=== PATIENT | female | born 1945 | race Caucasian/White ===

== ENCOUNTER 2017-05-19 19:48 | Emergency (ER) | payer OTHER ==
[2017-05-19 20:36] VITALS: BP 149/79
--- NOTE | 2017-05-19 20:46 | UC ---
Hand/Wrist HPI - HPI Summary HPI Summary: Pt presents s/p fall earlier this evening. She was walking downtown and did not see a plant box in front of her - hit her left [place]adwick on the box and fell forward with hands outstretched. Did not hit her head. She sustained a laceration to left leg - went home and cleaned the area and then came to urgent care. Currently she has right wrist pain and a laceration to her left anterior lower leg. She is in moderate pain, mostly due to her wrist, and has not taken anything for this. No numbness, tingling, or decreased ROM. - History Of Current Complaint Onset/Duration: Sudden Onset Severity Initially: Moderate Severity Currently: Moderate Pain Intensity: 8 Pain Scale Used: 0-10 Numeric Character Of Pain: Aching, Throbbing, Stiffness Aggravating Factor(s): Movement <Sandor Quiroz - Last Filed: 05/20/17 18:02> <Deyanira Escobar - Last Filed: 05/21/17 06:59> - History Of Current Complaint Chief Complaint: UCUpperExtremity Stated Complaint: HAND INJURY Time Seen by Provider: 05/19/17 20:45 - Allergies/Home Medications Allergies/Adverse Reactions: Allergies Allergy/AdvReac Type Severity Reaction Status Date / Time midazolam Allergy Nausea And Verified 05/19/17 20:38 Vomiting PMH/Surg Hx/FS Hx/Imm Hx Previously Healthy: Yes Cardiovascular History: Hypertension Respiratory History: Asthma - Surgical History Surgical History: Yes Surgery Procedure, Year, and Place: APPENDECTOMY A CHILD. TONSILLECTOMY A CHILD - Family History Known Family History: Positive: None - Social History Occupation: Retired Lives: With Family Alcohol Use: None Substance Use Type: None Smoking Status (MU): Former Smoker When Did the Patient Quit Smoking/Using Tobacco: SMOKED IN COLLEGE <Sandor Quiroz - Last Filed: 05/20/17 18:02> Review of Systems Constitutional: Negative Skin: Other - Laceration left leg Respiratory: Negative Cardiovascular: Negative Neurovascular: Negative Musculoskeletal: Other: - Pain right wrist Neurological: Negative Psychological: Negative All Other Systems Reviewed And Are Negative: Yes <Sandor Quiroz - Last Filed: 05/20/17 18:02> Physical Exam Triage Information Reviewed: Yes Appearance: Well-Appearing, No Pain Distress, Well-Nourished Vital Signs: Initial Vital Signs Temp 98.3 F 05/19/17 20:33 Pulse 68 05/19/17 20:33 Resp 20 05/19/17 20:33 BP 149/79 05/19/17 20:33 Pulse Ox 97 05/19/17 20:33 Vital Signs Reviewed: Yes Neck: Positive: Supple, Other: - NTTP. FROM Respiratory: Positive: Lungs clear, Normal breath sounds, No respiratory distress Cardiovascular: Positive: RRR, No Murmur, Pulses Normal - Right radial and ulnar Musculoskeletal: Positive: Strength Intact - Right wrist and hand, ROM Intact - Right wrist, No Edema - Right wrist, Other: - Mild TTP about right wrist with no specific point tenderness Neurological: Positive: Alert, Other: - Sensations intact right hand and all fingers. Skin: Positive: Other - 3.0cm linear superficial laceration to left anterior leg along mid tibia approx 5mm in width. No subcutaneous fat exposed. No FB appreciated <Sandor Quiroz - Last Filed: 05/20/17 18:02> Vital Signs: Initial Vital Signs Temp 98.3 F 05/19/17 20:33 Pulse 68 05/19/17 20:33 Resp 20 05/19/17 20:33 BP 149/79 05/19/17 20:33 Pulse Ox 97 05/19/17 20:33 <Deyanira Escobar - Last Filed: 05/21/17 06:59> Procedures - Laceration/Wound Repair 1 Location: lower extremity Description: Linear Anesthesia: 2.0% Length, Depth and Shape: 3.0cm length 5mm width Irrigated w/ Saline (ccs): 250 Closure: Single Layer Suture Type: Nylon - 5-0 Number of Sutures: 4 Sterile Dressing Applied?: Yes - telfa <Sandor Quiroz - Last Filed: 05/20/17 18:02> Hand/Wrist Course/Dx - Course Course Of Treatment: Wrist XR: IMPRESSION: NO FRACTURE OF THE WRIST IS NOTED. For her wrist, I will provide her with a cock-up splint and have her take ibuprofen prn for pain and RICE for 24-48 hours. A time out was performed, witnessed, and signed. The leg laceration was irrigated with sterile saline. 2mL of 2% lidocaine without epi was administered and good anesthetization was achieved. In the usual sterile fashion, FOUR 5-0 nylon sutures were placed. The wound was bandaged with telfa and tegaderm. Pt tolerated procedure well. - Differential Dx/Diagnosis Provider Diagnoses: Right wrist pain. Left leg laceration 3.0cm. Fall <Sandor Quiroz - Last Filed: 05/20/17 18:02> Discharge <Sandor Quiroz - Last Filed: 05/20/17 18:02> <Deyanira Escobar - Last Filed: 05/21/17 06:59> - Discharge Plan Condition: Stable Disposition: HOME Patient Education Materials: Care For Your Stitches (DC), Wrist Injury (ED) Referrals: Sandra Rodriguez MD [Primary Care Provider] - Additional Instructions: If you develop a fever, shortness of breath, chest pain, new or worsening symptoms - please call your PCP or go to the ED. Your blood pressure was high at todays visit. Please see your primary provider within 4 weeks for recheck and re-evaluation. 1) Rest, Ice, and elevate your wrist as much as possible over the next 24-48 hours. May use the splint as needed for comfort. 2) Please return in 8-10 days to have your FOUR sutures removed from your leg. If you develop a fever, colored or thick discharge, increased pain or swelling - please call your PCP or go to the ED. Attestation Statement User Type: Provider - I was available for consult. This patient was seen by the advanced practice provider. The patient was not presented to, seen by, or examined by me.-Ron <Deyanira Escobar - Last Filed: 05/21/17 06:59>
[2017-05-19] MEDS ORDERED: Lidocaine 2% PF * 5 ML VIAL INJ ONE (21:04)
--- NOTE | 2017-05-19 21:09 | RAD ---
Indication: Right wrist injury and pain 3 views of the wrist demonstrates no fracture. No other bone or joint abnormality is identified. IMPRESSION: NO FRACTURE OF THE WRIST IS NOTED.
[2017-05-19] MEDS ORDERED: Tetan/Diph/Pertus SYR(Tdap)* 0.5 ML SYR(BOOSTRIX) use SYR IM ONE (21:43)
== END 2017-05-19 22:04 | disposition home or self-care (01) ==
LOC: UCEAST 19:48
DX: M25.531 Pain in right wrist (principal); S81.812A Laceration without foreign body, left lower leg, initial encounter; W18.00XA Striking against unspecified object with subsequent fall, initial encounter; Y93.01 Activity, walking, marching and hiking; Y92.89 Other specified places as the place of occurrence of the external cause; Z23 Encounter for immunization; I10 Essential (primary) hypertension; J45.909 Unspecified asthma, uncomplicated; Z88.8 Allergy status to other drugs, medicaments and biological substances; Z87.891 Personal history of nicotine dependence
CPT/HCPCS: 12002; 90471; 90715; 99212; G0463

== ENCOUNTER 2017-05-27 12:07 | Emergency (ER) | payer OTHER ==
--- NOTE | 2017-05-27 14:02 | UC ---
Laceration HPI - HPI Summary HPI Summary: laceration left lower leg 8 days ago----wound scabbed---but 2 days ago developed swelling and tightness in her lower leg. - History Of Current Complaint Chief Complaint: UCLowerExtremity Stated Complaint: RECHECK WOUND ON LEG Time Seen by Provider: 05/27/17 13:02 Hx Obtained From: Patient Laceration Location: Generalized - left lower leg 5 cm laceration scabbed with surrounding erythema and tenderness Mechanism Of Injury: Blunt Trauma Onset/Duration: Sudden Onset, Lasting Days - 8, Still Present Severity: Moderate Pain Intensity: 6 Pain Scale Used: 0-10 Numeric - Allergies/Home Medications Allergies/Adverse Reactions: Allergies Allergy/AdvReac Type Severity Reaction Status Date / Time codeine Allergy Nausea And Verified 05/27/17 12:34 Vomiting midazolam Allergy Nausea And Verified 05/27/17 12:34 Vomiting PMH/Surg Hx/FS Hx/Imm Hx Previously Healthy: No Cardiovascular History: Hypertension Respiratory History: Asthma Psychological History: Anxiety - Surgical History Surgical History: Yes Surgery Procedure, Year, and Place: APPENDECTOMY A CHILD. TONSILLECTOMY A CHILD - Family History Known Family History: Positive: None - Social History Occupation: Retired Lives: With Family Alcohol Use: None Substance Use Type: None Smoking Status (MU): Former Smoker When Did the Patient Quit Smoking/Using Tobacco: SMOKED IN COLLEGE Review of Systems Constitutional: Negative Skin: Other - scabbed healing wound leg lower leg with surrounding edema and tightness, would is scabbed and has acout 3 cm surrounding erythma Eyes: Negative ENT: Negative Respiratory: Negative Cardiovascular: Negative Gastrointestinal: Negative Genitourinary: Negative Motor: Negative Neurovascular: Negative Musculoskeletal: Myalgia - left lower leg Neurological: Negative Psychological: Negative Is Patient Immunocompromised?: No All Other Systems Reviewed And Are Negative: Yes Physical Exam Triage Information Reviewed: Yes Appearance: Well-Appearing, No Pain Distress, Well-Nourished Vital Signs: Initial Vital Signs Temp 98.3 F 05/27/17 12:30 Pulse 65 05/27/17 12:30 Resp 12 05/27/17 12:30 BP 151/83 05/27/17 12:30 Pulse Ox 100 05/27/17 12:30 Vital Signs Reviewed: Yes Eye Exam: Normal Eyes: Positive: Conjunctiva Clear ENT Exam: Normal ENT: Positive: Normal ENT inspection, Hearing grossly normal. Negative: Nasal congestion, Nasal drainage, Trismus, Muffled voice, Hoarse voice, Dental tenderness Dental Exam: Normal Neck exam: Normal Neck: Positive: Supple, Nontender Respiratory Exam: Normal Respiratory: Positive: Chest non-tender, No respiratory distress, No accessory muscle use Cardiovascular Exam: Normal Cardiovascular: Positive: RRR, Pulses Normal, Brisk Capillary Refill Musculoskeletal Exam: Normal Musculoskeletal: Positive: Strength Intact, ROM Intact, Edema @ - left lower leg Neurological Exam: Normal Neurological: Positive: Alert, Muscle Tone Normal Psychological Exam: Normal Psychological: Positive: Normal Response To Family Skin Exam: Normal Diagnostics - Laboratory Diagnostic Studies Completed/Ordered: US-WNL Re-Evaluation - Re-Evaluation First Eval Change: Improved - Sutures removed-steri strips applied---wound well approx- patient tolerated well Laceration Course/Dx - Course/Dx Course Of Treatment: warm compress, keflex for 5 days follow BP with pcp - Differential Dx - Laceration/Wound Provider Diagnoses: suture removal LLE, Wound infection, elevated Blood pressure in poor control Discharge - Discharge Plan Condition: Stable Disposition: HOME Prescriptions: Cephalexin CAP* [Keflex CAP*] 500 mg PO QID #20 cap Patient Education Materials: Wound Infection (ED), Hypertension (ED), Warm Compress or Soak (ED) Referrals: Sandra Rodriguez MD [Primary Care Provider] - 1 Week
--- NOTE | 2017-05-27 14:15 | RAD ---
INDICATION: Pain and swelling. COMPARISON: None TECHNIQUE: Duplex interrogation of the Lowerextremity was performed. FINDINGS: Deep veins: The common femoral, great saphenous, profunda femoris, proximal, mid, and distal deep femoral, popliteal, posterior tibial, and peroneal veins are patent. There is normal compressibility, augmentation, and phasic flow. Superficial veins: There are no findings of superficial thrombophlebitis. Popliteal fossa:There is no evidence of a popliteal cyst. Soft tissues:There are no soft tissue abnormalities. IMPRESSION: Normal examination. No evidence of deep venous thrombosis
[2017-05-27] MEDS ORDERED: Benzoin Compound STICK TOPICAL ONE (14:23)
[2017-05-27 14:36] VITALS: BP 163/71
== END 2017-05-27 14:40 | disposition home or self-care (01) ==
LOC: UCEAST 12:07
DX: Z87.891 Personal history of nicotine dependence (principal); S81.812D Laceration without foreign body, left lower leg, subsequent encounter; L08.9 Local infection of the skin and subcutaneous tissue, unspecified; X58.XXXD Exposure to other specified factors, subsequent encounter; R03.0 Elevated blood-pressure reading, without diagnosis of hypertension; M79.89 Other specified soft tissue disorders
CPT/HCPCS: 99212; G0463

== ENCOUNTER 2018-12-23 15:56 | Emergency (ER) | payer OTHER ==
[2018-12-23 16:27] VITALS: BP 146/76
--- NOTE | 2018-12-23 16:38 | UC ---
Laceration HPI - HPI Summary HPI Summary: 73-year-old female who was walking on the sidewalk and she hit an uneven area and fell causing a laceration to her chin. She denies any other injury. She denies neck pain and no head pain. - History Of Current Complaint Chief Complaint: UCLaceration Stated Complaint: CHIN LAC Time Seen by Provider: 12/23/18 16:20 Hx Obtained From: Patient Laceration Location: Face - Laceration to chin. Mechanism Of Injury: Blunt Trauma - Fell while walking on the sidewalk. Severity: Mild Pain Intensity: 1 Aggravating Factors: Nothing Head: 1 - 2.0 centimeter laceration to chin. - Allergies/Home Medications Allergies/Adverse Reactions: Allergies Allergy/AdvReac Type Severity Reaction Status Date / Time codeine Allergy Nausea And Verified 05/27/17 12:34 Vomiting midazolam AdvReac Intermediate Nausea And Verified 01/03/18 07:40 Vomiting Home Medications: Home Medications Esomeprazole(NF) [NexIUM(NF)] 40 mg PO BEDTIME 12/23/18 [History Confirmed 12/23] PMH/Surg Hx/FS Hx/Imm Hx Previously Healthy: Yes Respiratory History: Asthma - Surgical History Surgical History: Yes Surgery Procedure, Year, and Place: APPENDECTOMY A CHILD. TONSILLECTOMY A CHILD - Family History Known Family History: Positive: None - Social History Occupation: Employed Full-time Alcohol Use: None Substance Use Type: None Smoking Status (MU): Former Smoker When Did the Patient Quit Smoking/Using Tobacco: SMOKED IN COLLEGE - Immunization History Most Recent Tetanus Shot: 07/2016 Review of Systems All Other Systems Reviewed And Are Negative: Yes Skin: Positive: Bruising - Mild bruising to chin., Other - Laceration to chin. Is Patient Immunocompromised?: No Physical Exam Triage Information Reviewed: Yes Appearance: Well-Appearing, No Pain Distress, Well-Nourished Vital Signs: Initial Vital Signs Temp 97.6 F 12/23/18 16:20 Pulse 62 12/23/18 16:20 Resp 16 12/23/18 16:20 BP 146/76 12/23/18 16:20 Pulse Ox 100 12/23/18 16:20 Vital Signs Reviewed: Yes Eyes: Positive: Conjunctiva Clear - PERRLA, EOMI ENT: Positive: Hearing grossly normal, Pharynx normal, TMs normal, Uvula midline , Other - Good maxillary/mandibular stability, nose is nontender. Neck: Positive: Supple, Nontender - C-spine nontender, No Lymphadenopathy Respiratory: Positive: Chest non-tender, Lungs clear, Normal breath sounds, No respiratory distress, No accessory muscle use Cardiovascular: Positive: RRR, No Murmur, Pulses Normal, Brisk Capillary Refill Abdomen Description: Positive: Nontender, No Organomegaly, Soft. Negative: CVA Tenderness (R), CVA Tenderness (L) Bowel Sounds: Positive: Present Musculoskeletal Exam: Normal Musculoskeletal: Positive: Strength Intact, ROM Intact - Good peripheral pulses , neuro sensation and capillary refill, full range of motion., Other: - Skull is nontender Neurological: Positive: Alert - Cranial nerves II through XII are intact. Psychological Exam: Normal Skin: Positive: Other - 2.0 cm laceration to the chin. Bleeding is controlled. Laceration Repair - Laceration Repair 1 Description: Irregular Laceration Size After Repair: Length (cm) - 2.0 cm Contamination/FB Removal: 2 small pieces of gravel were removed and then wound was irrigated. The wound was probed and no further foreign bodies were noted. Modified For Repair: No Type Injection: Local Anesthesia Used: 2.0% Lido Additive Used (in ml): Epi Cleansing Completed Via Routine Prep: Yes Irrigation With Pressure Irrigation Device: Yes Closure Material: Sutures - Sutures placed numbered 4 using 50 prolene. Patient tolerated procedure well. Laceration Course/Dx - Course/Dx Course Of Treatment: The patient tolerated the procedure well. She was given head injury precautions and to keep ice on the sore area. She may follow-up with her primary care provider in 5 days for suture removal. To go to the emergency room if she has any change in normal mental status, vomiting or any worsening symptoms. Patient is agreeable to this plan of action. - Diagnosis Provider Diagnosis: Chin laceration Discharge ED - Sign-Out/Discharge Documenting (check all that apply): Patient Departure All imaging exams completed and their final reports reviewed: No Studies - Discharge Plan Condition: Fair Disposition: HOME Patient Education Materials: Care For Your Stitches (DC), Contusion in Adults ( ED) Referrals: Sandra Rodriguez MD [Primary Care Provider] - Additional Instructions: Apply ice to the sore area. Take Tylenol every 4 hours for pain as needed. Follow-up with your primary care provider in 5 days for suture removal. Go to the emergency room if you have any severe headache, change in mental status, vomiting or any worsening symptoms. - Billing Disposition and Condition Condition: FAIR Disposition: Home - Attestation Statements Provider Attestation: Per institutional requirements, I have reviewed the chart, however, I was not consulted specifically or made aware of this patient by the midlevel provider. I did not personally evaluate, interact with , or disposition this patient.
[2018-12-23] MEDS ORDERED: Lidocaine 1% w EPI 1:100,000* MDV 20 ML VIAL INJ ONE (16:40)
[2018-12-23] MEDS ORDERED: Lidocaine 2% w EPI 1:100,000* 20 ML MDV VIAL INJ ONE (16:45)
[2018-12-23] MEDS ORDERED: Lidocaine 1% MPF ** 5 ML VIAL INJ ONE (17:43)
== END 2018-12-23 17:50 | disposition home or self-care (01) ==
LOC: UCEAST 15:56
DX: S01.82XA Laceration with foreign body of other part of head, initial encounter (principal); W18.30XA Fall on same level, unspecified, initial encounter; Y93.01 Activity, walking, marching and hiking; Y92.480 Sidewalk as the place of occurrence of the external cause; Z87.891 Personal history of nicotine dependence; Z88.5 Allergy status to narcotic agent; Z88.8 Allergy status to other drugs, medicaments and biological substances
CPT/HCPCS: 12011; 12051; 99212; G0463